=== PATIENT | female | born 1930 | race Caucasian/White ===

== ENCOUNTER 2019-11-01 09:41 | Emergency (ER) | payer MEDICARE, BC ==
--- NOTE | 2019-11-01 10:58 | EDM.PDOC ---
ED HPI GENERAL MEDICAL PROBLEM - General Chief Complaint: Cardiovascular Problem Stated Complaint: FLUID RETENTION Time Seen by Provider: 11/01/19 10:11 Source of Information: Reports: Patient, RN Notes Reviewed - History of Present Illness INITIAL COMMENTS - FREE TEXT/NARRATIVE: 89-year-old lady has been brought in by her daughter with concern about weight gain of about 3 or 4 pounds over the last few days. She has swelling of her lower legs, ankles and feet and also swelling of her hands today which is very atypical for her. She does have history of hypertension, on multiple meds for that. She has no chest pain or difficulty breathing. No history of known CHF or coronary artery disease. 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 - Related Data Allergies Allergy/AdvReac Type Severity Reaction Status Date / Time amoxicillin Allergy Rash Verified 11/01/19 09:54 celecoxib Allergy Rash Verified 11/01/19 09:54 codeine Allergy Vomiting Verified 11/01/19 09:54 ferrous sulfate Allergy Burning Verified 11/01/19 09:54 hydrocodone Allergy Vomiting Verified 11/01/19 09:54 meperidine [From Demerol] Allergy Tremors Verified 11/01/19 09:54 oxycodone Allergy Vomiting Verified 11/01/19 09:54 rofecoxib Allergy Rash Verified 11/01/19 09:54 Sulfa (Sulfonamide Allergy Rash Verified 11/01/19 09:54 Antibiotics) tetracycline Allergy Diarrhea Verified 11/01/19 09:54 Home Meds: Home Meds Acetaminophen [Tylenol] 325 mg PO Q4H PRN 11/01/19 [History] Aspirin [Halfprin] 81 mg PO DAILY 11/01/19 [History] Atenolol [Tenormin] 25 mg PO DAILY 11/01/19 [History] Cholecalciferol (Vitamin D3) [Vitamin D3] 4,000 unit PO DAILY 11/01/19 [History] Cyclobenzaprine [Flexeril] 5 mg PO TID PRN 11/01/19 [History] Furosemide [Lasix] 20 mg PO DAILY #30 tab 11/01/19 [Rx] Lisinopril [Zestril] 10 mg PO 11/01/19 [History] Omeprazole 20 mg PO DAILY 11/01/19 [History] Warfarin Sodium [Coumadin] 5 mg PO ASDIRECTED 11/01/19 [History] amLODIPine [Norvasc] 5 mg PO DAILY 11/01/19 [History] Past Medical History HEENT History: Reports: Impaired Vision Cardiovascular History: Reports: Hypertension 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: Musculoskeletal History: Reports: Back Pain, Chronic Hematologic History: Reports: Anemia, Iron Deficiency Dermatologic History: Reports: Other (See Below) Other Dermatologic History: metaplasia - Infectious Disease History Infectious Disease History: Reports: Chicken Pox, Measles, Mumps - Past Surgical History HEENT Surgical History: Reports: Tonsillectomy GI Surgical History: Reports: Appendectomy, Cholecystectomy, Other (See Below) Other GI Surgeries/Procedures: exploratory lap Female Surgical History: Reports: Oophorectomy Neurological Surgical History: Reports: Lumbar Spine, Spinal Fusion Musculoskeletal Surgical History: Reports: Ganglion Cyst Social & Family History - Family History Family Medical History: Noncontributory - Tobacco Use Smoking Status *Q: Never Smoker Second Hand Smoke Exposure: No ED ROS GENERAL - Review of Systems Review Of Systems: See Below Constitutional: Denies: Fever, Chills, Diaphoresis HEENT: Reports: No Symptoms Respiratory: Denies: Shortness of Breath, Pleuritic Chest Pain Cardiovascular: Denies: Chest Pain GI/Abdominal: Denies: Abdominal Pain, Nausea, Vomiting Musculoskeletal: Reports: Back Pain. Denies: Leg Pain (Chronic low back pain) Skin: Reports: No Symptoms Neurological: Reports: No Symptoms ED EXAM, GENERAL - Physical Exam Exam: See Below General Appearance: Alert, No Apparent Distress Eye Exam: Bilateral Eye: PERRL Throat/Mouth: Normal Inspection, Normal Oropharynx Head: Atraumatic Neck: Supple Respiratory/Chest: No Respiratory Distress, Lungs Clear, Normal Breath Sounds Cardiovascular: Regular Rate, Rhythm GI/Abdominal: Soft, Non-Tender Back Exam: No: CVA Tenderness (L), CVA Tenderness (R) Extremities: Normal Inspection, Normal Capillary Refill, Pedal Edema (Mild bilateral), Other (No calf pain or tenderness, there is mild swelling of bilateral hands and fingers). No: Leg Pain, Increased Warmth, Redness Neurological: Alert, Oriented, No Motor/Sensory Deficits Skin Exam: Warm, Dry, Normal Color Course - Vital Signs Last Recorded V/S: Last Vital Signs Temp 97.6 F 11/01/19 10:01 Pulse 73 11/01/19 12:54 Resp 16 11/01/19 10:01 BP 156/70 H 11/01/19 12:54 Pulse Ox 97 11/01/19 10:01 - Orders/Labs/Meds Labs: Laboratory Tests 11/01/19 11/01/19 Range/Units 11:11 12:05 PT 21.9 H (9.7-12.0) SECONDS INR 2.10 Sodium 147 H (136-145) mEq/L Potassium 4.7 (3.5-5.1) mEq/L Chloride 110 H (98-107) mEq/L Carbon Dioxide 27 (21-32) mEq/L Anion Gap 14.7 (5-15) BUN 23 H (7-18) mg/dL Creatinine 0.9 (0.55-1.02) mg/dL Est Cr Clr Drug Dosing 33.52 mL/min Estimated GFR (MDRD) 59 (>60) mL/min BUN/Creatinine Ratio 25.6 H (14-18) Glucose 96 (83-115) mg/dL Calcium 8.9 (8.5-10.1) mg/dL Total Bilirubin 0.4 (0.2-1.0) mg/dL AST 25 (15-37) U/L ALT 26 (14-59) U/L Alkaline Phosphatase 58 (46-116) U/L Total Protein 7.0 (6.4-8.2) g/dl Albumin 3.5 (3.4-5.0) g/dl Globulin 3.5 gm/dL Albumin/Globulin Ratio 1.0 (1-2) Meds: Medications Discontinued Medications Generic Name Dose Route Start Last Admin Trade Name Samson PRN Reason Stop Dose Admin Furosemide 20 mg 11/01/19 11:42 11/01/19 12:05 Lasix PO 11/01/19 11:43 20 mg ONETIME ONE Administration - Re-Assessments/Exams Free Text/Narrative Re-Assessment/Exam: 11/02/19 09:48, labs, CXR nl, will start on low dose furosemide for now, discharge instr. as documented. Departure - Departure Time of Disposition: 12:44 Disposition: Home, Self-Care 01 Condition: Fair Clinical Impression: Fluid retention in legs Prescriptions: Furosemide [Lasix] 20 mg PO DAILY #30 tab Instructions: Edema, [id number] Referrals: PCP,Not In Area [Primary Care Provider] - Forms: ED Department Discharge Additional Instructions: Furosemide 20 mg daily until you are back to baseline weight. Prescription has been sent electronically to the medicine shop. Then watch your weight not taking the furosemide. If your weight does go back up more than a pound or 2 then restart the furosemide as needed for fluid retention. Follow up with your regular medical provider in about 1-2 weeks for recheck, return to ED as needed if symptoms worsening in any way. Sepsis Event Note - Evaluation Sepsis Screening Result: No Definite Risk - Focused Exam Date Exam was Performed: 11/02/19 Time Exam was Performed: 09:42
[2019-11-01] MEDS ORDERED: Furosemide 20 MG Tab PO ONE (11:42)
--- NOTE | 2019-11-01 14:13 | CR ---
Chest: Portable view of the chest was obtained. Comparison: No previous chest x-ray. Heart size is normal. Tortuous thoracic aorta is seen. Lungs are clear. Scoliosis is present within the spine with mild scattered degenerative change. Impression: 1. Findings as noted above. 2. Nothing acute is appreciated. Diagnostic code #2 This report was dictated in [place] Standard Time
== END 2019-11-01 12:54 | disposition home or self-care (01) ==
LOC: JD.ED 09:41
DX: R60.0 Localized edema (principal); I10 Essential (primary) hypertension; Z88.0 Allergy status to penicillin; Z88.6 Allergy status to analgesic agent; Z88.5 Allergy status to narcotic agent; Z88.8 Allergy status to other drugs, medicaments and biological substances; Z88.2 Allergy status to sulfonamides; Z79.82 Long term (current) use of aspirin; Z79.01 Long term (current) use of anticoagulants
CPT/HCPCS: 36415; 71045; 80053; 85610; 99283; A9270